=== PATIENT | male | born 1960 | race Caucasian/White ===

== ENCOUNTER 2017-06-09 09:04 | Day surgery (SDC) | payer OTHER ==
[2017-06-09] MEDS ORDERED: LACTATED RINGERS 1,000 ML IV ONE (09:24)
[2017-06-09] MEDS ORDERED: fentaNYL 100 MCG/2 ML VIAL IVP ONE (10:30)
[2017-06-09] MEDS ORDERED: MIDAZOLAM 2 MG/2 ML VIAL IVP ONE (10:30)
[2017-06-09 12:00] VITALS: BP 124/90
== END 2017-06-09 09:05 | disposition home or self-care (01) ==
LOC: SDS 09:04
PROVIDERS: ATTEND Surgery
PROC: 0DBL8ZX Excision of Transverse Colon, Via Natural or Artificial Opening Endoscopic, Diagnostic (ICD-10-PCS; 2017-06-09)
PROC: 0DBK8ZX Excision of Ascending Colon, Via Natural or Artificial Opening Endoscopic, Diagnostic (ICD-10-PCS; principal; 2017-06-09 10:15)
DX: Z12.11 Encounter for screening for malignant neoplasm of colon (principal); D12.2 Benign neoplasm of ascending colon; D12.3 Benign neoplasm of transverse colon; D12.4 Benign neoplasm of descending colon; D12.5 Benign neoplasm of sigmoid colon
CPT/HCPCS: 45384; 45385; J7120

== ENCOUNTER 2019-07-25 07:49 | Outpatient (CLI) | payer OTHER ==
[2019-07-25] MEDS ORDERED: IOVERSOL 320 50 ML VIAL ONE (07:54)
[2019-07-25] MEDS ORDERED: IOVERSOL 320 100 ML VIAL IVP ONE ×2 (07:54→09:09)
[2019-07-25 08:35] LABS: CALCIUM 9.1 mg/dL (8.5-10.3)
[2019-07-25] MEDS ORDERED: IOVERSOL 320 50 ML VIAL PO ONE (09:09)
--- NOTE | 2019-07-25 11:47 | CT Report ---
Reason: LLQ ABDOMEN PAIN Procedure Date: 07/25/2019 Accession Number: [id number] / [id number] Procedure: CT - Abdomen/Pelvis W CPT Code: Final Report FULL RESULT: EXAM: CT ABDOMEN AND PELVIS EXAM DATE: 07/25/2019 09:05 AM. CLINICAL HISTORY: LLQ abdomen pain. COMPARISONS: None. TECHNIQUE: Routine helical CT imaging was performed through the abdomen and pelvis. IV contrast: OPTI 320 100 mL. Enteric contrast: No. Reconstructions: Coronal and sagittal. In accordance with CT protocol optimization, one or more of the following dose reduction techniques were utilized for this exam: automated exposure control, adjustment of mA and/or KV based on patient size, or use of iterative reconstructive technique. FINDINGS: Lung Bases: Unremarkable. Liver: Mildly hypodense consistent with fatty infiltration. A simple 8 mm cyst is incidental in the left hepatic lobe, considered benign in this low risk setting. Gallbladder/Bile Ducts: Unremarkable. Spleen: Normal. Pancreas: Normal. Adrenal Glands: Normal. Kidneys: Normal. No masses or hydronephrosis. Peritoneal Cavity/Bowel: Moderate stool is incidental in the colon. A few scattered diverticula noted. No evidence for active diverticulitis. No free fluid, free air or adenopathy. No masses or acute inflammatory process. The appendix is well visualized and normal. Pelvic Organs: Normal. The bladder and visualized pelvic organs are within normal limits. Vasculature: Scant atherosclerotic ossifications affiliated with the aorta and visceral arteries. No aneurysmal dilation. Bones: Minimal degenerative change in the lumbar spine. Other: Small bilateral fat-containing inguinal hernias without evidence for incarceration. IMPRESSION: 1. No acute process. Specifically there is no CT exhalation for left lower quadrant pain. 2. Mild diverticulosis without evidence for active diverticulitis. 3. Fatty liver. [facility]
== END 2019-07-25 07:50 | disposition home or self-care (01) ==
LOC: LAB 07:49
PROVIDERS: ATTEND Surgery
DX: D12.6 Benign neoplasm of colon, unspecified (principal); R10.32 Left lower quadrant pain
CPT/HCPCS: 36415; 74177; 80048; Q9967

== ENCOUNTER 2019-08-18 08:25 | Outpatient (CLI) | payer OTHER ==
--- NOTE | 2019-08-20 09:04 | Ultrasound Report ---
Reason: ABD PAIN, LLQ Procedure Date: 08/18/2019 Accession Number: [id number] / [id number] Procedure: US - Abdomen Complete CPT Code: Final Report FULL RESULT: EXAM: ABDOMEN ULTRASOUND EXAM DATE: 08/18/2019 09:04 AM. CLINICAL HISTORY: ABD PAIN, LLQ. COMPARISON: ABDOMEN/PELVIS W/ 07/25/2019 9:00 AM. TECHNIQUE: Real-time scanning was performed with static images obtained. FINDINGS: Liver: Liver parenchyma is heterogeneous and mildly hyperechoic. No discrete liver masses or intrahepatic bile duct dilation. However, evaluation for masses is limited secondary to the echogenicity. Right liver measures 14.3 cm. Main portal vein flow: Hepatopetal. Gallbladder: Normal. No stones, wall thickening, or sonographic Carney's sign. Biliary System: Common bile duct measures 3.9 mm. No intrahepatic or extrahepatic ductal dilatation. Pancreas: Distal pancreas not well-seen. Limitations secondary to bowel gas. Remaining pancreas unremarkable. Kidneys: Right: 10.9 cm longitudinally. Normal. No contour-deforming mass, stones, or hydronephrosis. Left: 11.3 cm longitudinally. Normal. No contour-deforming mass, stones, or hydronephrosis. Spleen: Length measures 10.3 cm. Normal in size and echotexture. Aorta and Inferior Vena Cava: Unremarkable. Other: None. IMPRESSION: 1. No liver mass or intrahepatic dilation.Mildly echogenic fatty liver. No liver enlargement. 2. Normal gallbladder and common bile duct. 3. Normal pancreas. [facility]
== END 2019-08-18 08:26 | disposition home or self-care (01) ==
LOC: DI 08:25
PROVIDERS: ATTEND Surgery
DX: R10.32 Left lower quadrant pain (principal)
CPT/HCPCS: 76700